=== PATIENT | female | born 1970 | race African-American/Black ===

== ENCOUNTER 2023-10-23 10:23 | Outpatient (CLI) | payer OTHER, SELFPAY ==
[2023-10-23 10:47] LABS: Hematocrit 38.5 % (37.0-47.0); Hemoglobin 11.7 g/dL (12.0-15.0)
== END 2023-10-23 10:24 | disposition home or self-care (01) ==
LOC: ANHSURGERY 10:28
PROVIDERS: Anesthesiology; Visit Provider Podiatrist Foot & Ankle Surgery
DX: Z01.818 Encounter for other preprocedural examination (principal); D64.9 Anemia, unspecified
CPT/HCPCS: 36415; 85014; 85018

== ENCOUNTER 2023-10-30 02:31 | Day surgery (SDC) | payer OTHER, SELFPAY ==
[2023-10-22 11:38] VITALS: BMI 27.2
--- NOTE | 2023-10-22 11:50 | PC.NURSE ---
Addendum entered by Jacquie Obrien RN 10/22/23 12:00: PT INFORMED TO STOP METHOTREXATE PER DR. BERMEO'S INSTRUCTIONS & TO CALL OFFICE IF NEEDED, UNDERSTANDING VOICED Original Note: PRE-OP INSTRUCTIONS, PLEASE READ CAREFULLY Report to the Outpatient Waiting Room, entrance under the green pavilion located off [facility], at time _0700_ on date _10/30/23_. Planned Procedure Time: _0900_. Time changes happen often and if your time is changed the preop area will call you the afternoon before. - You and your visitor will be asked to self-screen and do not enter if you have any COVID symptoms. - A mask is optional within the hospital at this time. Patients may have clear liquids (water, carbonated beverages, clear teas, apple juice) until 3 hours prior to surgery with a maximum of 20 ounces. - No food from midnight until time of surgery Take the following medications with a SIP of water the morning of surgery: _CYCLOBENZAPRINE IF NEEDED_ DO NOT STOP ANY OF YOUR OTHER PRESCRIPTION MEDICATIONS PRIOR TO SURGERY ?EXCEPT THE FOLLOWING Medications to discontinue per DR. GOLDSTEIN (PER PATIENT)- _ELIQUIS 2 DAYS PRIOR TO SURGERY, Date to take last dose 10/27/23_ Medications to discontinue per ANESTHESIA -_VITAMINS/SUPPLEMENTS 3 DAYS PRIOR TO SURGERY, Date to take last dose 10/26/23_ Please no make-up, nail georgian, hairspray, perfume, deodorant, or body powder the day of surgery. No jewelry (including any body piercings) or valuables the day of surgery, leave them at home. Please take a shower or bath the night before, or the morning of, surgery with an antibacterial soap. Wear comfortable, loose fitting clothing. - Jewelry must be removed prior to entering the operating room. Rings and piercings that are not removed may be cut off. - The hospital will not accept responsibility for valuables. - Please leave all valuables, including medications, at home the day of surgery. If you are going home after surgery, a licensed deliver driver must drive you home. - NO public transportation without another adult if you receive anesthesia. - We recommend that an adult stay with you for 24 hours following discharge. - We also recommend that you do not drive, make important decision, drink alcoholic beverages, or take any drugs that were not prescribed by your health care provider for at least 24 hours after your discharge time. Follow any additional instructions given to you from your surgeon. If you or anyone in your household have experienced Covid symptoms in the past week, please notify your surgeon or the nurse liaison at the phone number below for possible testing. Telephone instructions given to _PATIENT_and asked if any additional questions and then verbalized understanding. Patient advised to call surgeon office or pre surgery nurse liaison [phone] if any additional questions.
--- NOTE | 2023-10-29 14:35 | WPDANESEPPF ---
Anes - Initial Pre Proc Eval Procedure: Operation Date: 10/30/23 09:00 Proposed Procedures p Removal of Deep Orthopedic Hardware Right Foot - Markie Soliz Jr., DPM Date/Time: 10/29/23 14:35 Surgeon: Markie Soliz Jr., DPM Pre Op Diagnosis: Painful Hardware Rt Foot Patient Data Age: 53 Gender: F Height: 1.71 m Weight: 80 kg Allergies Allergy/AdvReac Type Severity Reaction Status Date / Time No Known Allergies Allergy Verified 10/22/23 11:28 Home Medications Medication Instructions Recorded Confirmed Type adalimumab 40 mg/0.8 mL See Rx Instructions .Route .COMPLEX 10/22/23 10/22/23 History subcutaneous pen kit (Humira Pen) apixaban 5 mg tablet (Eliquis) 5 mg BID 10/22/23 10/22/23 History cetirizine 10 mg capsule (Zyrtec) 10 mg PO DAILY PRN Congestion 10/22/23 10/22/23 History cholecalciferol (vitamin D3) 50 50 mcg PO QAM 10/22/23 10/22/23 History mcg (2,000 unit) tablet cyclobenzaprine 10 mg tablet 10 mg BID PRN Muscle Spasm 10/22/23 10/22/23 History duloxetine 60 mg capsule,delayed 120 mg PO HS 10/22/23 10/22/23 History release eszopiclone 3 mg tablet (Lunesta) 3 mg HS 10/22/23 10/22/23 History ferrous sulfate 325 mg (65 mg 65 mg PO QAM 10/22/23 10/22/23 History iron) capsule,extended release folic acid 1 mg tablet 2 mg PO DAILY QAM 10/22/23 10/22/23 History gabapentin 300 mg capsule 600 mg HS 10/22/23 10/22/23 History linaclotide 72 mcg capsule 72 mcg PO DAILY PRN IBS 10/22/23 10/22/23 History (Linzess) methotrexate sodium 2.5 mg tablet 2.5 mg WEEKLY 10/22/23 10/22/23 History metoprolol succinate 25 mg 25 mg PO HS 10/22/23 10/22/23 History tablet,extended release 24 hr norethindrone (contraceptive) 0.35 0.35 mg QAM 05/16/24 05/16/24 History mg tablet (Kristine) Patient hx anesthesia problems: none Family hx anesthesia problems: none Results Review: All pre-operative results and documents have been reviewed as part of the pre-operative evaluation. [facility] Past Medical History Medical History (Updated 10/30/23 @ 08:39 by Praveen Gotti DO) Arrhythmia SVT? on metoprolol now Fibromyalgia History of pulmonary embolism x2, last in 07/2023 - on antiocoagulants Rheumatoid arthritis Surgical History Surgical History (Updated 10/29/23 @ 14:36 by Praveen Gotti DO) History of appendectomy History of Social History Social History Smoking status: Never smoker Second hand tobacco smoke exposure: No Alcohol intake: never Substance use: never Substance use type: does not use Living arrangements: with family Spiritual care concerns: No Anes - Eval Final PreProcedure Day of Procedure 10/29/23 14:35 Patient weight: overweight Heart: regular rate and rhythm Lungs: clear to auscultation and normal air movement Airway: Mallampati scale class II Neurological: alert and oriented Last oral intake: >/= 8 hours ASA classification: III Emergent: no Anesthetic plan: proceed Anesthesia type and monitoring: general GIVS and standard monitoring Results Review: All pre-operative results and documents have been reviewed as part of the pre-operative evaluation. Informed Consent: The patient's anesthetic plan and its attendant risks and benefits were discussed with the patient/family/POA. Questions were solicited and answers provided to the satisfaction of the patient/family/POA.
--- NOTE | ~2023-10-30 | XR_ITS ---
EXAMINATION: XR surgery orthopedic DATE: 10/30/2023 09:30 INDICATION: Painful hardware of right foot. TECHNIQUE: 2 intraoperative fluoroscopic views of right foot were obtained. I was not present. Fluoro scopy exposure time was 1 second. COMPARISON: None. FINDINGS: There is an old healed fracture versus healed osteotomy of diaphysis of first metatarsal. F ixation is seen with 2 wires. The second image demonstrates removal of a wire. IMPRESSION: 1. Removal of a wire from first metatarsal. Reviewed, dictated and finalized at location A.
--- NOTE | 2023-10-30 07:11 | WPDHPUPDATE1 ---
History and Physical Update Update Date/Time: 10/30/23 07:11 History and Physical has been reviewed, including an updated exam of the patient. There are NO changes in the patient's condition. Risks, benefits, and alternatives have been discussed and questions answered. Patient agrees to proceed with procedure.
--- NOTE | 2023-10-30 08:07 | WPDANESEPPF ---
Anes - Initial Pre Proc Eval Procedure: Operation Date: 10/30/23 09:00 Proposed Procedures p Removal of Deep Orthopedic Hardware Right Foot - Markie Soliz Jr., DPM Date/Time: 10/30/23 08:07 Surgeon: Markie Soliz Jr., DPM Pre Op Diagnosis: Painful Hardware Rt Foot Patient Data Age: 53 Gender: F Height: 1.71 m Weight: 80 kg Allergies Allergy/AdvReac Type Severity Reaction Status Date / Time naltrexone Allergy Nausea and Verified 10/30/23 09:11 Vomiting Home Medications Medication Instructions Recorded Confirmed Type adalimumab 40 mg/0.8 mL See Rx Instructions .Route .COMPLEX 10/22/23 10/22/23 History subcutaneous pen kit (Humira Pen) apixaban 5 mg tablet (Eliquis) 5 mg BID 10/22/23 10/30/23 History cetirizine 10 mg capsule (Zyrtec) 10 mg PO DAILY PRN Congestion 10/22/23 10/22/23 History cholecalciferol (vitamin D3) 50 50 mcg PO QAM 10/22/23 10/22/23 History mcg (2,000 unit) tablet cyclobenzaprine 10 mg tablet 10 mg BID PRN Muscle Spasm 10/22/23 10/22/23 History duloxetine 60 mg capsule,delayed 120 mg PO HS 10/22/23 10/22/23 History release eszopiclone 3 mg tablet (Lunesta) 3 mg HS 10/22/23 10/22/23 History ferrous sulfate 325 mg (65 mg 65 mg PO QAM 10/22/23 10/22/23 History iron) capsule,extended release folic acid 1 mg tablet 2 mg PO DAILY QAM 10/22/23 10/22/23 History gabapentin 300 mg capsule 600 mg HS 10/22/23 10/22/23 History linaclotide 72 mcg capsule 72 mcg PO DAILY PRN IBS 10/22/23 10/22/23 History (Linzess) methotrexate sodium 2.5 mg tablet 2.5 mg WEEKLY 10/22/23 10/22/23 History metoprolol succinate 25 mg 25 mg PO HS 10/22/23 10/22/23 History tablet,extended release 24 hr norethindrone (contraceptive) 0.35 0.35 mg QAM 10/22/23 10/22/23 History mg tablet (Kristine) Patient hx anesthesia problems: none Family hx anesthesia problems: none Results Review: All pre-operative results and documents have been reviewed as part of the pre-operative evaluation. [facility] Past Medical History Medical History (Updated 10/30/23 @ 08:39 by Praveen Gotti DO) Arrhythmia SVT? on metoprolol now Fibromyalgia History of pulmonary embolism x2, last in 07/2023 - on antiocoagulants Rheumatoid arthritis Surgical History Surgical History (Updated 10/29/23 @ 14:36 by Praveen Gotti DO) History of appendectomy History of Social History Social History Smoking status: Never smoker Second hand tobacco smoke exposure: No Alcohol intake: never Substance use: never Substance use type: does not use Living arrangements: with family Spiritual care concerns: No Anes - Eval Final PreProcedure Day of Procedure 10/30/23 08:07 Patient weight: normal Heart: regular rate and rhythm Lungs: clear to auscultation Airway: Mallampati scale class II Neurological: alert and oriented Last oral intake: >/= 8 hours ASA classification: III Emergent: no Anesthetic plan: proceed Anesthesia type and monitoring: general GIVS and standard monitoring Results Review: All pre-operative results and documents have been reviewed as part of the pre-operative evaluation. Informed Consent: The patient's anesthetic plan and its attendant risks and benefits were discussed with the patient/family/POA. Questions were solicited and answers provided to the satisfaction of the patient/family/POA.
[2023-10-30 08:30] VITALS: BP 114/61; PULSE 92; RESP 14; TEMP 36.1; O2SAT 97
[2023-10-30] MEDS: LACTATED RINGERS 1,000 ML 30 ML IV CONT (08:30)
[2023-10-30] MEDS: ceFAZolin 2 GM/D5W 50 ML 2 GM/50 ML BAG IVPB (08:57)
[2023-10-30] MEDS: LIDOCAINE HCL 2% LOCAL INJ 20 ML VIAL 10 ML INFILTRATE (09:04)
[2023-10-30 09:30] VITALS: BP 97/63; PULSE 77; RESP 14; O2SAT 100
[2023-10-30 09:35] VITALS: O2SAT 100
--- NOTE | 2023-10-30 09:52 | W.PM.PROC2 ---
Procedure Note - Detailed Date of Procedure 10/30/23 Pre-op Diagnosis Painful Hardware Right Foot Post-op Diagnosis Same Procedure Performed Removal of deep orthopedic hardware right foot Surgeon Markie Soliz Jr., DPM Anesthesia MAC and Local Indications Painful hardware right foot Description of Procedure Under mild sedation, the patient was brought in to the operating room, placed on the operating table in the supine position. A pneumatic ankle tourniquet was placed about the patient's leg. Following monitored anesthesia care, local anesthesia was obtained about the patients ankle utilizing 20 mL of a 1:1 mixture of 2% Lidocaine plain and 0.5% Marcaine plain. The foot was then scrubbed, prepped, and draped in the usual aseptic manner. An Esmarch bandage was then used to exsanguinate the patient's foot and the pneumatic calf tourniquet was then inflated. An incision was made along the medial aspect of the distal shaft of the first metatarsal right foot. Fluoroscopy was used to identify the prominent K-wire. Dissection was continued to the subcutaneous tissues all bleeders were cauterized as necessary. A periosteal incision was made and the K wire, it was removed using a needle furniture delivery driver, in toto and placed on the back table. Fluoroscopy was used to confirm complete K wire removal. The wound site was flushed with sterile saline. Next, the subcutaneous layer and skin were reapproximated utilizing 4-0 Vicryl and 4-0Prolene in a simple and Horizontal mattress suture fashion technique correspondingly. Upon completion of the procedure, the incision was dressed with Adaptic, 4x4s, Kerlix, and Coban. The pneumatic calf tourniquet was then deflated and a prompt hyperemic response was noted to all digits of the foot. The surgical shoe was then applied. The patient did very well with the procedure and the anesthesia. The patient was transferred to the recovery room with vital signs stable and vascular status intact to all toes of the foot. Following a period of postoperative monitoring, the patient will be discharged home on the following written and oral postoperative instructions: 1. The patient should keep the dressing clean, dry, and intact. Use a cast protector bag with showers. 2. The patient will be protected weightbearing with surgical shoe. 3. Patient should ice and elevate the affected lower extremity while at rest. 4. The patient is to contact Dr. Soliz for all postop care and if any problems arise. 5. the patient will take Tylenol ES as needed for pain. Implants NA Estimated Blood Loss 1 Drains No Packing No Pathology None sent Complications No immediate complications Condition Stable Disposition Same day
[2023-10-30 09:57] VITALS: BP 101/69; PULSE 77; RESP 16; O2SAT 100
[2023-10-30 10:15] VITALS: BP 112/79; PULSE 63; RESP 16; O2SAT 96
[2023-10-30 10:44] VITALS: BP 123/86; PULSE 66; RESP 16; O2SAT 98
== END 2023-10-30 10:54 | disposition home or self-care (01) ==
PROVIDERS: Visit Provider Podiatrist Foot & Ankle Surgery
PROC: (CPT 20680; principal; 2023-10-30 09:00)
DX: T84.84XA Pain due to internal orthopedic prosthetic devices, implants and grafts, initial encounter (principal); Z79.85 Long-term (current) use of injectable non-insulin antidiabetic drugs; Z79.01 Long term (current) use of anticoagulants; Z98.890 Other specified postprocedural states; Z86.711 Personal history of pulmonary embolism; Z80.3 Family history of malignant neoplasm of breast; Y83.8 Other surgical procedures as the cause of abnormal reaction of the patient, or of later complication, without mention of misadventure at the time of the procedure
CPT/HCPCS: 20680; 99199; J0690; J1100; J2250; J2405; J2704; J3010; J7120